=== PATIENT | female | born 1995 ===

== ENCOUNTER → 2017-01-17 | Outpatient (CLI) | payer BC, OTHER | END | disposition home or self-care (01) | LOC: C.LABSPEC 17:07 | PROVIDERS: ATTEND Physician Assistant | DX: J32.9 Chronic sinusitis, unspecified (principal) ==

== ENCOUNTER → 2017-01-25 | Outpatient (CLI) | payer BC ==
--- NOTE | 2017-01-25 14:07 | DIAGNOSTIC IMAGING REPORT ---
CT SCAN OF THE PARANASAL SINUSES CLINICAL HISTORY: Chronic sinusitis. COMPARISON STUDY: No priors. TECHNIQUE: High-resolution CT scan of the paranasal sinuses is performed. Images are reviewed in the axial, sagittal, and coronal planes. IV contrast was not administered for this examination. The examination is performed using the fusion protocol. CT DOSE: 602.49 mGy.cm FINDINGS: Maxillary antra: There is moderate mucosal thickening with air-fluid levels present within both maxillary antra, right greater than left. Anterior ethmoid sinuses: Moderate mucosal thickening seen bilaterally, left greater than right. Posterior ethmoid sinuses: Trace mucosal thickening seen bilaterally. Sphenoid sinuses: There is subtotal opacification of the sphenoid sinuses with air-fluid levels. Frontal sinuses: Moderate mucosal thickening is on the left. Trace mucosal thickening is seen on the right. Ostiomeatal complexes: Occluded on the right. Significantly narrowed by mucosal thickening on the left. Frontoethmoidal and sphenoethmoidal recesses: Patent bilaterally. Carotid arteries: The carotid arteries are covered and there is a septal attachment on the right. Ethmoid roofs: There is asymmetric elevation of the left ethmoid roof as compared to the right. Focal thinning or a small bony defect is questioned in the right ethmoid roof on coronal image #27. Nasal turbinates: Normal in appearance. Nasal septum: There is minimal leftward deviation of the bony nasal septum. Optic nerves: Covered. Orbits: The bony orbits are intact. Orbital contents are normal in appearance. Calvarium: The imaged calvarium is normal in appearance Mastoid air cells: Well pneumatized. Brain parenchyma: Partially visualized brain parenchyma is within normal limits. IMPRESSION: Pansinusitis as above. Electronically signed by: Jimi Andrade M.D. 01/25/2017 2:05 PM Dictated Date/Time: 01/25/2017 1:57 PM
== END | disposition home or self-care (01) ==
LOC: C.CTS 13:37
PROVIDERS: ATTEND Physician Assistant
DX: J32.9 Chronic sinusitis, unspecified (principal)